=== PATIENT | female | born 1985 | race Caucasian/White ===

== ENCOUNTER 2017-01-03 03:17 | Emergency (ER) | payer MEDICARE, MEDICAID ==
[~2017-01-03] VITALS: Ht 167.6 cm; Wt 95.0 kg
[~2017-01-03 03:17] MED LIST: OMEP-113 PO
[2017-01-03 03:21] VITALS: BP 125/72; PULSE 102; RESP 16; O2SAT 97
--- NOTE | 2017-01-03 03:26 | ED.REPORT ---
HPI-Abd Pain F Under 40 Date of Service Jan 03, 2017 ED Provider: Reynaldo Winchester MD This is a 31 year old female with a history of hiatal hernia presenting to the emergency department due to epigastric abdominal pain that worsened yesterday. Abdominal pain is described as "extreme burning." Associated symptoms include nausea and indigestion. Single dose Omeprazole has not provided relief. Denies vomiting, diarrhea, constipation, hematochezia, fever, chills, cough, shortness of breath, or dysuria at this time. Patient states she was diagnosed with hiatal hernia in 2009 although an endoscopy one year ago did not indicate hernia. Nursing Notes Stated Complaint: HIATAL HERNIA PAIN Chief Complaint: Female Abdominal Pain Nursing Notes Reviewed: Yes Allergies: Coded Allergies: oxycodone (Verified Adverse Reaction, Severe, VERY NAUSEATED, 01/03/17) Scheduled Omeprazole (Omeprazole) 20 Mg Tablet.dr 20 MG PO BID Omeprazole Magnesium (Omeprazole) 20 Mg Capsule.dr 20 MG PO BID Scheduled PRN Tramadol (Tramadol) 50 Mg Tablet 100 MG PO Q6H PRN PRN For Pain General Time Seen by MD: 03:25 Chief Complaint Abdominal pain Hx Obtained From: Patient Arrived By: Walk-in Sudden in Onset?: Yes Onset Occurred: Yesterday Symptom Duration: Since onset Severity: Current: Moderate Pertinent Negative: Pt denies other symptoms Recent Healthcare: No recent doctor visit, No recent hospitalization Similar Sx Previous: No Past Medical History Past Medical History Deaf Hx hiatal hernia Past Surgical History Denies Smoking History Never Smoker Ambulatory Status Independent Review of Systems Constitutional: Denies: Chills, Fever Respiratory: Denies: Non-productive cough, Shortness of breath Cardiovascular: Denies: Chest pain GI: Reports: Abdominal pain, Nausea, Denies: Vomiting Musculoskeletal: Denies: Back pain Complete sys rev & neg: except as marked. Physical Exam Initial Vital Signs Vital Signs (First) Date Time Temp Pulse Resp B/P Pulse Ox O2 Delivery O2 Flow Rate FiO2 01/03/17 03:21 36.2 102 16 125/72 97 Room Air Initial VS: Reviewed Head / Eyes: Atraumatic, Normocephalic, PERRL ENT: Mucous membranes moist, Conjunctiva normal, No scleral icterus Neck: Supple, Non-tender, Full range of motion Extremities: Vascular intact, Neuro intact, No swelling, No tenderness Skin: Warm, Dry, No cyanosis Neurologic: Alert, Oriented, Nonfocal Psychiatric: Mood/affect normal, Behavior normal, Normal thought content General/Constitutional: Awake, Alert Respiratory / Chest: Breath sounds NL, Breath sounds = bilat, No respiratory distress, No rales, No rhonchi, No wheezing Cardiovascular: Heart rate NL, Regular rhythm, Heart sounds NL, Peripheral circulation NL Abdomen: Soft, BS normoactive Back: Inspection NL, Non-tender, No CVA tenderness Interpretation & Diagnostics Lab Results Interpretation Result Diagram: 01/03/17 0345 01/03/17 0345 Test 01/03/17 03:35 01/03/17 03:45 Prothrombin Time 9.8sec (8.1-12.5) Prothromb Time International Ratio 0.92ratio White Blood Count 15.2th/mm3 (3.8-10.1) Red Blood Count 4.81mil/mm3 (3.90-5.20) Hemoglobin 14.1g/dL (12.0-15.6) Hematocrit 42.8% (35.0-46.0) Mean Corpuscular Volume 89.0fL (81-100) Mean Corpuscular Hemoglobin 29.3pg (27.0-35.0) Mean Corpuscular Hemoglobin Concent 32.9% (32.0-37.0) Red Cell Distribution Width 13.6% (12.3-15.4) Platelet Count 276bil/L (150-400) Neutrophils (%) (Auto) 75.2% (40-74) Lymphocytes (%) (Auto) 16.1% (14-46) Monocytes (%) (Auto) 6.1% (4-12) Eosinophils (%) (Auto) 1.5% (0-5) Basophils (%) (Auto) 0.4% (0-3) Urine Color Yellow (YELLOW) Urine Appearance Hazy (CLEAR,HAZY) Urine pH 6.0 (5.0-8.0) Urine Specific [place] 1.036 (1.003-1.035) Urine Protein Negativemg/dL (NEG,TRACE) Urine Glucose (UA) Negativemg/dL (NEGATIVE) Urine Ketones Tracemg/dL (NEGATIVE) Urine Occult Blood Trace (NEGATIVE) Urine Nitrite Negative (NEGATIVE) Urine Bilirubin Negative (NEGATIVE) Urine Urobilinogen Normalmg/dL (NORMAL) Urine Leukocyte Esterase Negative (NEGATIVE) Urine RBC 0-2/hpf (0-2) Urine WBC 0-5/hpf (0-5) Urine Epithelial Cells Many/hpf (NONE-MOD) Urine Crystals None seen (NONE SEEN) Urine Bacteria Moderate/hpf (NONE-FEW) Urine Hyaline Casts None/lpf (NONE) Urine Granular Casts None seen (NONE SEEN) Urine Waxy Casts None seen (NONE SEEN) Urine Red Blood Cell Casts None seen (NONE SEEN) Urine White Blood Cell Casts None seen (NONE SEEN) Urine Mucus Present (None Seen) Urine Trichomonas None seen (NONE SEEN) Urine Yeast None (NONE SEEN) Urine Culture Reflexed Indicated Sodium Level 140mEq/L (134-144) Potassium Level 4.0mEq/L (3.5-5.2) Chloride Level 102mEq/L (97-108) Carbon Dioxide Level 21mmol/L (18-29) Blood Urea Nitrogen 13mg/dL (6-20) Creatinine 0.64mg/dL (0.57-1.00) Estimat Glomerular Filtration Rate 155mL/min (>59) Glucose Level 137mg/dL (60-99) Calcium Level 9.1mg/dL (8.5-10.1) Magnesium Level 1.8mg/dL (1.6-2.6) Total Bilirubin 0.4mg/dL (0.0-1.2) Aspartate Amino Transf (AST/SGOT) 14U/L (0-50) Alanine Aminotransferase (ALT/SGPT) 18U/L (0-32) Alkaline Phosphatase 103U/L (25-150) Total Protein 7.3g/dL (6.4-8.4) Albumin 4.1g/dL (3.4-5.0) Lipase 32U/L (13-60) X-Ray Chest Interpretation Interpretation / Wet Read by: Wet read ED physician NL X-Ray Chest Findings: No acute disease Re-Eval/Medical Decision Med Decision/Clinical Course Med Decision/Clinical Course: 31-year-old deaf female presents with epigastric burning similar to but more severe than prior episodes of hiatal hernia. She has been off her proton pump inhibitor for a while, took a single dose without relief. She is ultimately improved here after GI cocktail, IV Protonix, and a single dose of tramadol. Discharge now with routine instructions for gastritis and hiatal hernia, double dose omeprazole twenty twice a day, when necessary Pepcid, and antiacids when necessary. Follow-up with PCP and with gastroenterology. Counseled Regarding: Diagnosis, Need for follow-up, When/why to return to ED Discharge & Departure Primary Impression: Acute gastritis Gastritis type: unspecified gastritis Gastritis bleeding: without bleeding Qualified Code: K29.00 - Acute gastritis without bleeding Additional Impressions: Esophagitis Gastroesophageal reflux disease Disposition: Home Discharge Condition All VS Reviewed: Yes Condition: Stable Patient Instructions: Gastritis (ED), Gastroesophageal Reflux Disease (ED) Additional Instructions: Avoid acid foods. Avoid alcohol. Avoid excessive caffeine. A relatively low- fat diet is also advised. Begin omeprazole twice daily for 6-8 weeks without interruption. You may use Pepcid (famotidine) intermittently if needed additionally. You may also use antacids intermittently if needed. Tramadol sparingly if needed for pain additionally. These cannot be renewed from the emergency department. Follow-up with your doctor in the office, and with your police detention attendant. Return if you develop any bleeding, black stools, dizziness or fainting, or any other new symptom of concern. Referrals: Kip Archibald MD (PCP) Scribe Attestation Portions of this note were transcribed by Quintin Snyder. I, Dr. Winchester personally performed the history, physical exam and medical decision-making; I reviewed and confirmed the accuracy of the information in the transcribed note. Signed by La Nena Santiago, 01/02/2017 at 06:00. copies to: Kip Archibald MD, Christopher W MD Jan 03, 2017 03:26 QUINTIN SNYDER Jan 03, 2017 03:29
[2017-01-03] MEDS ORDERED: 0.9% Sodium Chloride 1,000 ML IV ONE (03:43)
[2017-01-03] MEDS ORDERED: Ondansetron 2 mg/mL 2 mL Inj IVPUSH ONE (03:45)
[2017-01-03] MEDS ORDERED: Pantoprazole 4 mg/mL 10 mL Inj IVPUSH ONE (03:45)
[2017-01-03 03:58] LABS: Mean Corpuscular Hemoglobin 29.3 pg (27.0-35.0); NEUTROPHILS % (AUTO) 75.2 % (40-74); Platelet Count 276 bil/L (150-400)
[2017-01-03 03:59] LABS: BASOPHILS % (AUTO) 0.4 % (0-3); EOSINOPHILS % (AUTO) 1.5 % (0-5); MONOCYTES % (AUTO) 6.1 % (4-12)
[2017-01-03 04:04] LABS: APPEARANCE,URINE HAZY (CLEAR,HAZY); COLOR,URINE YELLOW (YELLOW); OCCULT BLOOD,URINE TRACE (NEGATIVE); UROBILINOGEN,URINE NORMAL (NORMAL)
[2017-01-03] MEDS ORDERED: Alum-Mag Hydrox-Simeth 30 mL Suspension PO ONE (04:05)
[2017-01-03 04:18] LABS: INR 0.92 ratio
[2017-01-03 04:26] LABS: Magnesium 1.8 mg/dL (1.6-2.6)
[2017-01-03] MEDS ORDERED: TRAM50TA2 PO (05:30)
[2017-01-03] MEDS ORDERED: OMEP20TA86 PO (05:30)
[2017-01-03 05:35] VITALS: PULSE 78; RESP 16
--- NOTE | 2017-01-03 09:35 | DRSVH ---
PROCEDURE: X-RAY CHEST, TWO VIEWS ([id number]) INDICATIONS: epigastric pain TECHNIQUE: 2 views of the chest were acquired. COMPARISON: [facility], CR, CHEST 2VW, 12/06/2007, 13:11. FINDINGS: Surgical changes and devices: None. Lungs and pleura: No pleural effusions or pneumothorax. Lungs are clear. Mediastinum: Mediastinal contours are normal. Heart size is normal. Bones and chest wall: No suspicious bony abnormalities. Soft tissues appear unremarkable. IMPRESSION: No acute cardiopulmonary disease. Dictated by: Rg Moreno Sarath Interpreted: Anibal Danielson MD on 01/03/2017 at 9:34 Transcribed by: LJ on 01/03/2017 at 9:35 Approved by: Anibal Danielson M.D. on 01/03/2017 at 10:52
== END 2017-01-03 05:36 | disposition home or self-care (01) ==
LOC: SED 03:17
DX: K29.00 Acute gastritis without bleeding (principal); K21.0 Gastro-esophageal reflux disease with esophagitis; K44.9 Diaphragmatic hernia without obstruction or gangrene; Z88.5 Allergy status to narcotic agent
CPT/HCPCS: 36415; 71020; 80053; 81000; 81025; 83690; 83735; 85025; 85610; 87086; 87088; 96361; 96374; 96375; 99285; J2405; J7030

== ENCOUNTER 2017-01-19 16:33 | Emergency (ER) | payer MEDICARE, MEDICAID ==
[~2017-01-19] VITALS: Ht 167.6 cm; Wt 90.9 kg
[~2017-01-19 16:33] MED LIST changes: +OMEP20TA86 PO; +TRAM50TA2 PO
[2017-01-19 16:36] VITALS: BP 127/40; PULSE 104; RESP 16; O2SAT 96
[2017-01-19 17:32] LABS: BASOPHILS % (AUTO) 0.2 % (0-3); EOSINOPHILS % (AUTO) 1.9 % (0-5); MONOCYTES % (AUTO) 5.8 % (4-12); Mean Corpuscular Hemoglobin 29.7 pg (27.0-35.0); Mean Corpuscular Volume 88.5 fL (81-100); NEUTROPHILS % (AUTO) 79.9 % (40-74); Platelet Count 238 bil/L (150-400)
--- NOTE | 2017-01-19 17:41 | ED.REPORT ---
HPI-Abd Pain F Under 40 Date of Service January 19, 2017 ED Provider: Matt Crocker MD Patient a 31 year old female who presents to the ED complaining of intermittent lower right quadrant abdominal pain. Associated symptoms include increased bowel movements. She denies hematochezia, black/tarry stool, hematuria, dysuria , nausea, fever, vomiting, chest pain, shortness of breath, diarrhea or sour taste in her mouth She describes the pain as burning. Patient reports that she is about to start her menstrual cycle but is not . The patient was seen on 01/03/17 for similar symptoms and diagnosed with GERD. She reports that she was given medication but that she has gotten progressively worse. Nursing Notes Stated Complaint: ABDOMINAL PAIN, VOMITING Chief Complaint: Female Abdominal Pain Nursing Notes Reviewed: Yes Allergies: Coded Allergies: oxycodone (Verified Adverse Reaction, Severe, VERY NAUSEATED, 01/03/17) Scheduled Cephalexin (Keflex) 500 Mg Capsule 500 MG PO QID Omeprazole (Omeprazole) 20 Mg Tablet.dr 20 MG PO BID Omeprazole Magnesium (Omeprazole) 20 Mg Capsule.dr 20 MG PO BID Ranitidine (Ranitidine) 150 Mg Capsule 150 MG PO DAILY Scheduled PRN Calcium Carbonate (Tums) 500 Mg Tab.chew 500 MG PO PRN PRN PRN For Dyspepsia or Heartburn Tramadol (Tramadol) 50 Mg Tablet 100 MG PO Q6H PRN PRN For Pain General Time Seen by MD: 17:40 Chief Complaint Abdominal pain 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 (2 weeks) Symptom Duration: Since onset Progression since Onset: Gradually worsening Location: : RLQ Recent Healthcare: No recent hospitalization, Recent doctor visit Similar Sx Previous: Yes Past Medical History Past Medical History Deaf hiatal hernia Past Surgical History ear and foot surgery Smoking History Never Smoker Ambulatory Status Independent Review of Systems Constitutional: Denies: Fever Respiratory: Denies: Non-productive cough, Shortness of breath Cardiovascular: Denies: Chest pain GI: Reports: Abdominal pain, Denies: Bloody/tarry stool, Diarrhea, Hematochezia, Nausea, Vomiting Female: Denies: Dysuria, Hematuria, Complete sys rev & neg: except as marked. Physical Exam Initial Vital Signs Vital Signs (First) Date Time Temp Pulse Resp B/P Pulse Ox O2 Delivery O2 Flow Rate FiO2 01/19/17 16:36 36.6 104 16 127/40 96 Room Air Initial VS: Reviewed General/Constitutional: Awake, Alert, No acute distress Respiratory / Chest: Atraumatic, Breath sounds NL, Breath sounds = bilat, No respiratory distress Cardiovascular: Heart rate NL, Regular rhythm, Heart sounds NL, No murmurs Abdomen: No guarding, No rebound Tenderness/Guarding/Rebound: Positive: Tender epigastric Back: Atraumatic, Full range of motion, No CVA tenderness Head / Eyes: Atraumatic, Normocephalic, PERRL, EOMI Skin: Atraumatic, Color NL, No rash, Warm, Dry Neurologic: Oriented X3, Speech NL, No motor deficits, No sensory deficits Psychiatric: Affect NL, Mood NL Interpretation & Diagnostics Lab Results Interpretation Result Diagram: 01/19/17 1724 01/19/17 1724 Test 01/19/17 17:24 01/19/17 19:51 White Blood Count 17.8th/mm3 (3.8-10.1) Red Blood Count 4.54mil/mm3 (3.90-5.20) Hemoglobin 13.5g/dL (12.0-15.6) Hematocrit 40.2% (35.0-46.0) Mean Corpuscular Volume 88.5fL (81-100) Mean Corpuscular Hemoglobin 29.7pg (27.0-35.0) Mean Corpuscular Hemoglobin Concent 33.6% (32.0-37.0) Red Cell Distribution Width 13.3% (12.3-15.4) Platelet Count 238bil/L (150-400) Neutrophils (%) (Auto) 79.9% (40-74) Lymphocytes (%) (Auto) 11.7% (14-46) Monocytes (%) (Auto) 5.8% (4-12) Eosinophils (%) (Auto) 1.9% (0-5) Basophils (%) (Auto) 0.2% (0-3) Sodium Level 138mEq/L (134-144) Potassium Level 3.7mEq/L (3.5-5.2) Chloride Level 100mEq/L (97-108) Carbon Dioxide Level 23mmol/L (18-29) Blood Urea Nitrogen 11mg/dL (6-20) Creatinine 0.70mg/dL (0.57-1.00) Estimat Glomerular Filtration Rate 140mL/min (>59) Glucose Level 135mg/dL (60-99) Calcium Level 9.3mg/dL (8.5-10.1) Magnesium Level 1.6mg/dL (1.6-2.6) Total Bilirubin 0.3mg/dL (0.0-1.2) Aspartate Amino Transf (AST/SGOT) 16U/L (0-50) Alanine Aminotransferase (ALT/SGPT) 17U/L (0-32) Alkaline Phosphatase 96U/L (25-150) Total Protein 7.5g/dL (6.4-8.4) Albumin 4.1g/dL (3.4-5.0) Lipase 36U/L (13-60) Hold Snell Top Tube Received (Received) Urine Color Yellow (YELLOW) Urine Appearance Hazy (CLEAR,HAZY) Urine pH 6.0 (5.0-8.0) Urine Specific [place] 1.029 (1.003-1.035) Urine Protein Negativemg/dL (NEG,TRACE) Urine Glucose (UA) Negativemg/dL (NEGATIVE) Urine Ketones Negativemg/dL (NEGATIVE) Urine Occult Blood Trace (NEGATIVE) Urine Nitrite Negative (NEGATIVE) Urine Bilirubin Negative (NEGATIVE) Urine Urobilinogen Normalmg/dL (NORMAL) Urine Leukocyte Esterase Small (NEGATIVE) Urine RBC 3-10/hpf (0-2) Urine WBC 6-10/hpf (0-5) Urine Epithelial Cells Many/hpf (NONE-MOD) Urine Crystals None seen (NONE SEEN) Urine Bacteria Moderate/hpf (NONE-FEW) Urine Hyaline Casts None/lpf (NONE) Urine Granular Casts None seen (NONE SEEN) Urine Waxy Casts None seen (NONE SEEN) Urine Red Blood Cell Casts None seen (NONE SEEN) Urine White Blood Cell Casts None seen (NONE SEEN) Urine Mucus Present (None Seen) Urine Trichomonas None seen (NONE SEEN) Urine Yeast None (NONE SEEN) Urinalysis Comment Urine Culture Reflexed Indicated Re-Eval/Medical Decision Med Decision/Clinical Course Med Decision/Clinical Course: 31-year-old female history of GERD presenting with epigastric pain. She was seen 2 weeks ago and was given omeprazole with initially improvement in symptoms and now with return of symptoms. She has mild epigastric tenderness. Her labs are stable. Her vital signs are stable. She had no rebound or guarding. Her pain resolved completely with GI cocktail. Her urine does show UTI. She will be treated for UTI and GERD. She is advised to continue her omeprazole. Take Tums as needed. Follow-up with primary doctor in several days. Return precautions given. Source of Hx: Old records Re-Evaluation/Progress : Time of Eval: 20:47 Re-Evaluation/Progress Note: Discussed results and plan for discharge. The patient understands and agrees to the plan for discharge. All questions were addressed. Counseled Regarding: Diagnosis, Lab results, Need for follow-up, When/why to return to ED Discharge & Departure Primary Impression: Urinary tract infection Urinary tract infection type: site unspecified Hematuria presence: without hematuria Qualified Code: N39.0 - Urinary tract infection, site not specified Additional Impression: GERD (gastroesophageal reflux disease) Esophagitis presence: esophagitis presence not specified Qualified Code: K21.9 - Gastro-esophageal reflux disease without esophagitis Disposition: Home Discharge Condition All VS Reviewed: Yes Condition: Stable Patient Instructions: Gastroesophageal Reflux Disease (GEN), Urinary Tract Infection in Women (GEN) Additional Instructions: Your labs show that you have an urinary tract infection and also most likely GERD. Take the antibiotics as prescribed and you can take Tums to help. Please follow up with your primary care physician next week. Return to the emergency department if you develop any new or worsening symptoms including pain or blood with urination or bowel movements, diarrhea, fever or vomiting. Referrals: Kip Archibald MD (PCP) Jessicaibe Attestation Portions of this note were transcribed by Kate Allen. I, Dr. Jose G Winchester personally performed the history, physical exam and medical decision-making; I reviewed and confirmed the accuracy of the information in the transcribed note. Signed by: La Nena Schafer, 01/19/17 and 2047 copies to: Kip Archibald MD, Ben M MD January 19, 2017 17:41 Lyssa Allen January 19, 2017 19:55
[2017-01-19 17:49] LABS: Magnesium 1.6 mg/dL (1.6-2.6)
[2017-01-19] MEDS ORDERED: Ondansetron 2 mg/mL 2 mL Inj ONE ×2 (18:54→19:14)
[2017-01-19] MEDS ORDERED: LidocaineVisc 2%:Antacid 1:1 10 mL Syringe PO ONE (19:55)
[2017-01-19 20:13] LABS: APPEARANCE,URINE HAZY (CLEAR,HAZY); COLOR,URINE YELLOW (YELLOW); OCCULT BLOOD,URINE TRACE (NEGATIVE); UROBILINOGEN,URINE NORMAL (NORMAL)
[2017-01-19] MEDS ORDERED: CEPH-512 PO (20:42)
[2017-01-19] MEDS ORDERED: CALC500T9 PO (20:42)
[2017-01-19] MEDS ORDERED: RANI150C4 PO (20:42)
[2017-01-19 21:00] VITALS: BP 120/58; PULSE 72; RESP 20; O2SAT 97
[2017-01-19 21:01] VITALS: BP 120/58; PULSE 72; RESP 20; O2SAT 97
== END 2017-01-19 21:02 | disposition home or self-care (01) ==
LOC: SED 16:33
DX: N39.0 Urinary tract infection, site not specified (principal); K21.9 Gastro-esophageal reflux disease without esophagitis; Z88.5 Allergy status to narcotic agent
CPT/HCPCS: 36415; 80053; 81000; 81025; 83690; 83735; 85025; 87086; 87088; 96361; 96374; 99285; J2405

== ENCOUNTER 2017-05-20 07:49 | Emergency (ER) | payer MEDICARE, MEDICAID ==
[~2017-05-20] VITALS: Ht 167.6 cm; Wt 90.9 kg
[~2017-05-20 07:49] MED LIST changes: +CALC500T9 PO; +CEPH-512 PO; +RANI150C4 PO
[2017-05-20 07:54] VITALS: BP 121/77; PULSE 97; RESP 22; O2SAT 94
--- NOTE | 2017-05-20 09:15 | ED.REPORT ---
HPI-General Illness Date of Service May 20, 2017 ED Provider: Param Crow DO Pt is a deaf generally healthy 31 y/o female presenting to the ED c/o clear productive cough onset 2 days ago. The patient has been coughing for 2 days and has also been experiencing worsening R-sided rib pain which she describes as a pulled muscle from coughing. This pain is similar to a previous episode of pneumonia. She does not use inhalers at home. 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 By: Walk-in Sudden in Onset?: No Onset Occurred: 2 days ago Symptom Duration: Since onset Location: : Chest Quality: Painful, Pleuritic Severity: Current: Moderate Severity: Maximum: Moderate Similar Sx Previous: Yes Past Medical History Past Medical History Deaf GERD Hx hiatal hernia Hx pneumonia Past Surgical History ear and foot surgery Smoking History Never Smoker Social History Alcohol Use: "Social" Drug Use: THC Ambulatory Status Independent Review of Systems Full Review of Systems Respiratory: Reports: Pleuritic pain, Prod cough, clear Cardiovascular: Reports: Chest pain Complete sys rev & neg: except as marked. Physical Exam Vital Signs Vital Signs Date Time Temp Pulse Resp B/P Pulse Ox O2 Delivery O2 Flow Rate FiO2 05/20/17 10:19 36.7 92 20 118/72 96 Room Air 05/20/17 07:54 36.8 97 22 121/77 94 Room Air Initial VS: Reviewed, Vital signs abnormal Head / Eyes: Atraumatic, Normocephalic ENT: Mucous membranes moist, Conjunctiva normal Neck: Full range of motion Cardiovascular: Regular rate & rhythm, Heart sounds normal, Intact distal pulses Abdomen / GI: No distention Extremities: Vascular intact, Neuro intact, No swelling Skin: Warm, Dry, No cyanosis Neurologic: Alert, Oriented, Nonfocal Psychiatric: Mood/affect normal, Behavior normal, Normal thought content General/Constitutional: Awake, Alert, No acute distress, Cooperative, Not toxic appearing Respiratory / Chest: Breath sounds = bilat, No respiratory distress, No rales, No rhonchi, No retractions, No stridor, No chest tenderness, No crepitus Wheezing throughout Interpretation & Diagnostics Lab Results Interpretation Test 05/20/17 08:17 Hold Urine Received (Received) X-Ray Chest Interpretation Chest Xray Interpretation: IMPRESSION: Possible left basilar airspace disease versus slight prominence of the pericardial fat. Please correlate clinically to exclude developing pneumonia. Dictated by: Brian Max M.D. on 05/20/2017 at 8:15 Approved by: Brian Max M.D. on 05/20/2017 at 8:17 View: Portable, 1 view Interpretation / Wet Read by: Interpret - Radiologist Re-Eval/Medical Decision Med Decision/Clinical Course X-ray is concerning for early pneumonia, we will treat with an albuterol inhaler and antibiotics. Time of Eval: 09:55 Patient Status: Condition improved, Moderate relief Re-Evaluation/Progress Note: Pt rechecked. Informed pt of plan for discharge. Pt understands and agrees with plan for discharge. F/U instructions and RTER warnings given. All questions addressed. Counseled Regarding: Diagnosis, Need for follow-up, When/why to return to ED Discharge & Departure Primary Impression: Pneumonia Pneumonia type: due to unspecified organism Laterality: unspecified laterality Lung location: unspecified part of lung Qualified Code: J18.9 - Pneumonia, unspecified organism Disposition: Home Discharge Condition All VS Reviewed: Yes Condition: Stable Patient Instructions: Community Acquired Pneumonia (ED) Additional Instructions: Use albuterol, ibuprofen, and Augmentin and azithromycin as prescribed. Call your regular doctor today for follow-up appointment within the next week. Return to the ER as needed for worsening symptoms Referrals: Kip Archibald MD (PCP) Scribe Attestation Portions of this note were transcribed by Renato Álvarez. I, Dr. O'Martha personally performed the history, physical exam and medical decision-making; I reviewed and confirmed the accuracy of the information in the transcribed note. copies to: Kip Archibald MD, Timothy S DO May 20, 2017 09:15 RENATO ÁLVAREZ May 20, 2017 09:18
--- NOTE | 2017-05-20 09:19 | DRSVH ---
PROCEDURE: X-RAY CHEST ONE VIEW, PORTABLE ([id number]) INDICATIONS: cough/sob TECHNIQUE: One view of the chest was acquired. COMPARISON: [facility], CR, XR CHEST 2VW, 01/03/2017, 4:28. FINDINGS: Surgical changes and devices: None. Lungs and pleura: There is slight increased attenuation at the apex of the heart involving the left l natali base, which may represent a subtle focus of airspace disease. No lobar consolidation, large effu he, or pneumothorax is evident. Mediastinum: Mediastinal contours appear normal. Heart size is normal. Bones and chest wall: No suspicious bony lesions. Overlying soft tissues appear unremarkable. IMPRESSION: Possible left basilar airspace disease versus slight prominence of the pericardial fat. Please correlate clinically to exclude developing pneumonia. Dictated by: Brian Max M.D. on 05/20/2017 at 8:15 Approved by: Brian Max M.D. on 05/20/2017 at 8:17
[2017-05-20] MEDS ORDERED: Albuterol HFA 60 Puff 8 Gm Inhaler INHALATION ONE (09:35)
[2017-05-20] MEDS ORDERED: Albuterol 2.5 mg/3 mL Inhalation Solution NEB ONE (09:45)
[2017-05-20] MEDS ORDERED: IBUP800T28 PO (09:46)
[2017-05-20] MEDS ORDERED: AZIT250T4 PO (09:46)
[2017-05-20] MEDS ORDERED: AMOX-366 PO (09:46)
[2017-05-20] MEDS ORDERED: Albuterol HFA 60 Puff 8 Gm Inhaler INHALATION PRN (09:50)
[2017-05-20] MEDS ORDERED: Albuterol HFA 200 Puff Inhaler (Vent Pts Only) INHALATION ONE (09:55)
[2017-05-20] MEDS ORDERED: Albuterol HFA 200 Puff Inhaler (Vent Pts Only) INHALATION PRN (09:55)
[2017-05-20] MEDS ORDERED: Albuterol HFA 60 Puff 8 Gm Inhaler INHALATION SCH (10:00)
[2017-05-20] MEDS ORDERED: Albuterol HFA 200 Puff Inhaler (Vent Pts Only) INHALATION SCH (10:00)
[2017-05-20 10:19] VITALS: BP 118/72; PULSE 92; RESP 20; O2SAT 96
== END 2017-05-20 10:19 | disposition home or self-care (01) ==
LOC: SED 07:49
DX: J18.9 Pneumonia, unspecified organism (principal); R07.81 Pleurodynia; K21.9 Gastro-esophageal reflux disease without esophagitis; H91.90 Unspecified hearing loss, unspecified ear; Z87.01 Personal history of pneumonia (recurrent); Z98.890 Other specified postprocedural states; Z88.5 Allergy status to narcotic agent; Z88.8 Allergy status to other drugs, medicaments and biological substances